=== PATIENT | male | born 1965 | race Caucasian/White ===

== ENCOUNTER 2024-11-03 16:40 | Emergency (ER) | payer MEDICARE ==
[2024-11-03 17:06] VITALS: TEMP 98.1
--- NOTE | 2024-11-03 17:50 | ED ---
General Adult HPI - General Chief complaint: Chest Pain Stated complaint: Abd pain Time Seen by Provider: 11/03/24 17:10 Source: patient Mode of arrival: ambulatory Limitations: no limitations - History of Present Illness Initial comments: Dictation was produced using [employer] dictation software. please excuse any grammatical, word or spelling errors. Chief Complaint: 59-year-old male with epigastric pain History of Present Illness: Patient is a 59-year-old male liver disease and hypertension presents to the ER for couple hours of epigastric pain. Patient states that the pain feels like a pressure in his epigastrium. Does report some nausea. No diaphoresis. Started after he woke up from a nap after going out getting something to eat with his significant other. Denies any fever. Denies any cardiac history. Pain is nonradiating. Patient has history of rib fracture to his left lower anterior ribs. The ROS documented in this emergency department record has been reviewed and confirmed by me. Those systems with pertinent positive or negative responses have been documented in the HPI. All other systems are other negative and/or noncontributory. - Related Data Previous Rx's Medication Instructions Recorded HYDROcodone/APAP 5-325MG [[place] 1 tab PO Q6HR PRN 3 Days #12 tab 11/03/24 5-325] Allergies Allergy/AdvReac Type Severity Reaction Status Date / Time No Known Allergies Allergy Verified 11/03/24 17:05 Review of Systems ROS Statement: Those systems with pertinent positive or pertinent negative responses have been documented in the HPI. ROS Other: All systems not noted in ROS Statement are negative. Past Medical History Past Medical History: Unable to Obtain, Liver Disease Past Surgical History: Unable to Obtain Additional Past Surgical History / Comment(s): pt states theres too many to list and wont provide history Past Psychological History: No Psychological Hx Reported Past Alcohol Use History: Abuse Past Drug Use History: None Reported General Exam - General Exam Comments Initial Comments: PHYSICAL EXAM: General Impression: Alert and oriented x3, not in acute distress HEENT: Normocephalic atraumatic, extra-ocular movements intact, pupils equal and reactive to light bilaterally, mucous membranes moist. Cardiovascular: Heart regular rate and rhythm Chest: Able to complete full sentences, no retractions, no tachypnea palpatory tenderness to the left lower anterior ribs Abdomen: abdomen soft, non-tender, non-distended, no organomegaly Musculoskeletal: Pulses present and equal in all extremities, no peripheral edema Motor: no focal deficits noted Neurological: CN II-XII grossly intact, no focal motor or sensory deficits noted Skin: Intact with no visualized rashes Psych: Normal affect and mood Limitations: no limitations Course Vital Signs 11/03/24 17:01 Temperature 98.1 F Pulse Rate 70 Respiratory 22 Rate Blood Pressure 135/84 O2 Sat by Pulse 97 Oximetry EKG Findings - EKG Comments: EKG Findings:: My EKG interpretation: Ventricular rate 66, sinus rhythm, parable 153, cures 93, QTc 437. No [place] prolongation, no QTC prolongation, no ST or T-wave changes noted. Overall, this EKG is unremarkable Medical Decision Making - Medical Decision Making Was pt. sent in by a medical professional or institution (, PA, BRINE PURIFIER, urgent care, hospital, or retirement...) When possible be specific @ -No Did you speak to anyone other than the patient for history (EMS, parent, family, police, friend...)? What history was obtained from this source @ -No Did you review nursing and triage notes (agree or disagree)? Why? @ -I reviewed and agree with nursing and triage notes Were old charts reviewed (outside hosp., previous admission, EMS record, old EKG, old radiological studies, urgent care reports/EKG's, retirement records)? Report findings @ -No old charts were reviewed Differential Diagnosis (chest pain, altered mental status, abdominal pain women, abdominal pain men, vaginal bleeding, musculoskeletal, weakness, fever, dyspnea, syncope, headache, dizziness, GI bleed, back pain, seizure, CVA, palpatations, mental health)? @ -Differential Chest Pain: Stable Angina, Unstable Angina, STEMI, NSTEMI Aortic Dissection, Pneumothorax, Musculoskeletal, Esophageal Spasm GERD, Cholecystitis, Pancreatitis, Zoster, this is not meant to be an all-inclusive list. EKG interpreted by me (3pts min.). @ -See above X-rays interpreted by me (1pt min.). @ -X-ray shows multiple old rib fractures CT interpreted by me (1pt min.). @ -CT abdomen shows gallstones slight inflammation around the bladder U/S interpreted by me (1pt. min.). @ -None done What testing was considered but not performed or refused? (CT, X-rays, U/S, labs)? Why? @ -None What meds were considered but not given or refused? Why? @ -None Was smoking cessation discussed for >3mins.? @ -No Were there social determinants of health that impacted care today? How? (Homelessness, low income, unemployed, alcoholism, drug addiction, transportation, low edu. Level, literacy, decrease access to med. care, group home, rehab)? @ -No Was there de-escalation of care discussed even if they declined (Discuss DNR or withdrawal of care, Hospice)? DNR status @ -No What co-morbidities impacted this encounter? (DM, HTN, Smoking, COPD, CAD, Cancer, CVA, ARF, Chemo, Hep., AIDS, mental health diagnosis, sleep apnea, morbi d obesity)? @ -Recent rib fractures Was patient admitted / discharged? Hospital course, mention meds given and route, prescriptions, significant lab abnormalities, going to OR and other pertinent info. @ -59-year-old male presents emergency department with epigastric abdominal pain along with left-sided rib pain. He has history of recent rib fractures. He also has history of liver disease. Patient has reproducible pain to his left anterior ribs. Vital signs upon arrival are within acceptable limits. Laboratory evaluation obtained. Labs within acceptable limits including Trope. He has reproducible left anterior chest pain. Urinalysis is unremarkable. Did you discuss the management of the patient with other professionals (professionals i.e. , PA, BRINE PURIFIER, lab, RT, psych nurse, social work manager, floriculture professor, teacher, electronic intelligence officer, director case management)? Give summary @ -Patient given analgesics. Urinalysis tested due to abnormal findings on CT Was critical care preformed (if so, how long)? @ -No Undiagnosed new problem with uncertain prognosis? @ -No Drug Therapy requiring intensive monitoring for toxicity (Heparin, Nitro, Insulin, Cardizem)? @ -No Were any procedures done? @ -No Diagnosis/symptom? Acute, or Chronic, or Acute on Chronic? Uncomplicated (without systemic symptoms) or Complicated (systemic symptoms)? @ -Rib pain Side effects of treatment? @ -No Exacerbation, Progression, or Severe Exacerbation? @ -No Poses a threat to life or bodily function? How? (Chest pain, [place], [place], pneumonia, PE, COPD, DKA, ARF, appy, cholecystitis, CVA, Diverticulitis, Homicidal, Suicid al, threat to staff... and all critical care pts) @ -yes - Lab Data Result diagrams: 11/03/24 17:57 11/03/24 17:57 Lab Results 11/03/24 11/03/24 11/03/24 Range/Units 17:57 17:57 17:57 WBC 3.79 L (4.50-10.00) 10*3/uL RBC 3.83 L (4.40-5.60) 10*6/uL Hgb 14.0 (13.0-17.0) g/dL Hct 38.0 L (39.6-50.0) % MCV 99.2 H (80.0-97.0) fL MCH 36.6 H (27.0-32.0) pg MCHC 36.8 (32.0-37.0) g/dL Plt Count 110 L (140-440) 10*3/uL MPV 10.7 (9.5-12.2) fL Immature Gran % (Auto) 0.3 % Neutrophils % 54.6 % Lymphocytes % 29.8 % Monocytes % 12.4 % Eosinophils % 2.4 % Basophils % 0.5 % Immature Gran # 0.01 (0.00-0.04) 10*3/uL Neutrophils # 2.07 (1.80-7.70) 10*3/uL Lymphocytes # 1.13 (0.90-5.00) 10*3/uL Monocytes # 0.47 (0.20-1.00) 10*3/uL Eosinophils # 0.09 (0.04-0.35) 10*3/uL Basophils # 0.02 (0.00-0.10) 10*3/uL PT 13.8 H (10.0-12.5) sec INR 1.3 H (<1.2) APTT 26.1 (22.0-30.0) sec Sodium 137 (137-145) mmol/L Potassium 4.1 (3.5-5.1) mmol/L Chloride 100 (98-107) mmol/L Carbon Dioxide 25 (22-30) mmol/L Anion Gap 12 mmol/L BUN 6 L (9-20) mg/dL Creatinine 0.77 (0.66-1.25) mg/dL Est GFR (CKD-EPI)AfAm >90 (>60 ml/min/1.73 sqM) Est GFR (CKD-EPI)NonAf >90 (>60 ml/min/1.73 sqM) Glucose 120 H (74-99) mg/dL Calcium 9.2 (8.4-10.2) mg/dL Magnesium 1.6 (1.6-2.3) mg/dL Total Bilirubin 3.5 H (0.2-1.3) mg/dL AST 103 H (17-59) U/L ALT 55 H (4-49) U/L Alkaline Phosphatase 114 (38-126) U/L Troponin I (0.000-0.034) ng/mL Total Protein 6.6 (6.3-8.2) g/dL Albumin 3.7 (3.5-5.0) g/dL Lipase 85 (23-300) U/L Urine Color Urine Appearance (Clear) Urine pH (5.0-8.0) Ur Specific [place] (1.001-1.035) Urine Protein (Negative) Urine Glucose (UA) (Negative) Urine Ketones (Negative) Urine Blood (Negative) Urine Nitrite (Negative) Urine Bilirubin (Negative) Urine Urobilinogen (<2.0) mg/dL Ur Leukocyte Esterase (Negative) 11/03/24 11/03/24 Range/Units 17:57 20:56 WBC (4.50-10.00) 10*3/uL RBC (4.40-5.60) 10*6/uL Hgb (13.0-17.0) g/dL Hct (39.6-50.0) % MCV (80.0-97.0) fL MCH (27.0-32.0) pg MCHC (32.0-37.0) g/dL Plt Count (140-440) 10*3/uL MPV (9.5-12.2) fL Immature Gran % (Auto) % Neutrophils % % Lymphocytes % % Monocytes % % Eosinophils % % Basophils % % Immature Gran # (0.00-0.04) 10*3/uL Neutrophils # (1.80-7.70) 10*3/uL Lymphocytes # (0.90-5.00) 10*3/uL Monocytes # (0.20-1.00) 10*3/uL Eosinophils # (0.04-0.35) 10*3/uL Basophils # (0.00-0.10) 10*3/uL PT (10.0-12.5) sec INR (<1.2) APTT (22.0-30.0) sec Sodium (137-145) mmol/L Potassium (3.5-5.1) mmol/L Chloride (98-107) mmol/L Carbon Dioxide (22-30) mmol/L Anion Gap mmol/L BUN (9-20) mg/dL Creatinine (0.66-1.25) mg/dL Est GFR (CKD-EPI)AfAm (>60 ml/min/1.73 sqM) Est GFR (CKD-EPI)NonAf (>60 ml/min/1.73 sqM) Glucose (74-99) mg/dL Calcium (8.4-10.2) mg/dL Magnesium (1.6-2.3) mg/dL Total Bilirubin (0.2-1.3) mg/dL AST (17-59) U/L ALT (4-49) U/L Alkaline Phosphatase (38-126) U/L Troponin I <0.012 (0.000-0.034) ng/mL Total Protein (6.3-8.2) g/dL Albumin (3.5-5.0) g/dL Lipase (23-300) U/L Urine Color Yellow Urine Appearance Clear (Clear) Urine pH 6.5 (5.0-8.0) Ur Specific [place] >1.050 H (1.001-1.035) Urine Protein Negative (Negative) Urine Glucose (UA) Negative (Negative) Urine Ketones Negative (Negative) Urine Blood Negative (Negative) Urine Nitrite Negative (Negative) Urine Bilirubin Negative (Negative) Urine Urobilinogen >12.0 (<2.0) mg/dL Ur Leukocyte Esterase Negative (Negative) Disposition Clinical Impression: Rib pain Disposition: HOME SELF-CARE Condition: Fair Instructions (If sedation given, give patient instructions): Rib Fracture (ED) Prescriptions: HYDROcodone/APAP 5-325MG [[place] 5-325] 1 tab PO Q6HR PRN 3 Days #12 tab PRN Reason: Severe Pain Is patient prescribed a controlled substance at d/c from ED?: Yes If prescribed controlled substance>3 days was MAPS reviewed?: Prescribed <3 Days Referrals: None,Stated [Primary Care Provider] - 1-2 days Time of Disposition: 21:18
[2024-11-03 18:03] LABS: Basophils # (A) 0.02 10*3/uL (0.00-0.10); Basophils % (A) 0.5 %; Eosinophils # (A) 0.09 10*3/uL (0.04-0.35); Eosinophils % (A) 2.4 %; Lymphocytes # (A) 1.13 10*3/uL (0.90-5.00); Lymphocytes % (A) 29.8 %; MCH 36.6 pg (27.0-32.0); MCHC 36.8 g/dL (32.0-37.0); MCV 99.2 fL (80.0-97.0); Mean Platelet Volume 10.7 fL (9.5-12.2); Monocytes # (A) 0.47 10*3/uL (0.20-1.00); Monocytes % (A) 12.4 %; Neutrophils # (A) 2.07 10*3/uL (1.80-7.70); Neutrophils % (A) 54.6 %; Platelet Count 110 10*3/uL (140-440); RBC 3.83 10*6/uL (4.40-5.60); RDW 13.2 % (11.5-14.5); WBC 3.79 10*3/uL (4.50-10.00)
[2024-11-03 18:13] LABS: INR 1.3 (<1.2); Partial Thromboplastin Time 26.1 sec (22.0-30.0); Prothrombin Time 13.8 sec (10.0-12.5)
[2024-11-03] MEDS: MORPHINE SULFATE 4 MG/ML SYRINGE IVP PRN (18:14)
[2024-11-03 18:19] LABS: ALT 55 U/L (4-49); African American GFR (CKD) >90 (>60 ml/min/1.73 sqM); Albumin 3.7 g/dL (3.5-5.0); Anion Gap 12 mmol/L; Blood Urea Nitrogen 6 mg/dL (9-20); Calcium 9.2 mg/dL (8.4-10.2); Carbon Dioxide 25 mmol/L (22-30); Chloride 100 mmol/L (98-107); Glucose 120 mg/dL (74-99); Lipase 85 U/L (23-300); Magnesium 1.6 mg/dL (1.6-2.3); Non-African American GFR(CKD) >90 (>60 ml/min/1.73 sqM); Potassium 4.1 mmol/L (3.5-5.1); Sodium 137 mmol/L (137-145); Total Bilirubin 3.5 mg/dL (0.2-1.3); Total Protein 6.6 g/dL (6.3-8.2)
[2024-11-03 18:20] LABS: AST 103 U/L (17-59); Alkaline Phosphatase 114 U/L (38-126)
--- NOTE | 2024-11-03 18:46 | XR ---
EXAMINATION TYPE: XR chest 2V DATE OF EXAM: 11/03/2024 6:12 PM COMPARISON: None CLINICAL INDICATION: Male, 59 years old with history of Chest Pain; [facility] TECHNIQUE: XR chest 2V Frontal and lateral views of the chest. FINDINGS: Lungs/Pleura: There is no evidence of pleural effusion, focal consolidation, or pneumothorax. Pulmonary vascularity: Unremarkable. Heart/mediastinum: Cardiomediastinal silhouette is unremarkable. Musculoskeletal: No acute osseous pathology. Replating lung multiple left ribs. Displaced fractures o f upper left ribs noted IMPRESSION: No acute cardiopulmonary disease/process. Multiple old rib fractures on the left some which are incompletely reduced. [facility], , 11/03/2024 6:43 PM
--- NOTE | 2024-11-03 20:29 | CT ---
EXAMINATION TYPE: CT abdomen pelvis w con DATE OF EXAM: 11/03/2024 7:34 PM COMPARISON: None CLINICAL INDICATION: Male, 59 years old with history of abdominal pain; MID ABDOMINAL PAIN SINCE THIS MORNING, NAUSEA TECHNIQUE: Axial CT abdomen pelvis w con;Sagittal and coronal reformats were created on a separate w orkstation. Contrast used:100 ml mL of Isovue 300 with IV Contrast, (none if empty) Oral contrast used: without Oral Contrast (none if empty) CT DLP: 1280.2 mGycm, Automated exposure control for dose reduction was used. FINDINGS: LOWER CHEST: Left lateral rib fixation hardware. ABDOMEN LIVER: Diffusely hypoattenuating parenchyma with areas of even more decreased attenuation. GALLBLADDER AND BILE DUCTS: Layering increased densities within the lumen consistent with gallstones are present. PANCREAS: Unremarkable. SPLEEN: Prominent in size measuring up to 13 cm. ADRENAL GLANDS: Unremarkable. KIDNEYS AND URETERS: No evidence of hydronephrosis or obstructing renal calculus. The ureters are unr emarkable. PELVIS BLADDER: Mild wall thickening of the urinary bladder with fat stranding around the margin. REPRODUCTIVE: Coarse calcifications of the prostate gland are identified. ABDOMEN & PELVIS STOMACH AND BOWEL: No evidence of bowel obstruction. PERITONEUM/RETROPERITONEUM: No evidence of pneumoperitoneum or free fluid. VASCULATURE: No evidence of aortic aneurysm. Multiple large tortuous varicosities along the right huong [place] vein extending up into the portal confluence.. MUSCULOSKELETAL: No acute osseous abnormalities. Mild disc degeneration changes are present throughou t the thoracolumbar spine. the calcifications on the left hip possibly secondary to prior injury. Mil d degeneration changes of the left hip. LYMPH NODES: No gross evidence for lymphadenopathy. SOFT TISSUE/ABDOMINAL WALL: Bilateral inguinal IMPRESSION: 1. Severe hepatic steatosis with evidence of portal hypertension with multiple varicosities in the a bdomen. Correlate for early cirrhosis. Correlate with serum markers to exclude superimposed hepatitis . 2. Mild urinary bladder wall thickening with inflammation changes compared urinalysis for infection. 3. Hepatic steatosis. 4. Cholelithiasis with a distended gallbladder [facility], , 11/03/2024 8:27 PM
[2024-11-03 21:19] LABS: Appearance,Urine Clear (Clear); Bilirubin,Urine Negative (Negative); Blood,Urine Negative (Negative); Color,Urine Yellow; Glucose,Urine (UA) Negative (Negative); Ketones,Urine Negative (Negative); Leukocyte Esterase,Urine Negative (Negative); Nitrite,Urine Negative (Negative); PH, Urine 6.5 (5.0-8.0); Protein,Urine Negative (Negative); Urobilinogen,Urine >12.0 mg/dL (<2.0)
[2024-11-03 21:23] LABS: Specific Gravity,Urine >1.050 (1.001-1.035)
[2024-11-03] MEDS: LIDOCAINE 4% PATCH TOPICAL ONE (21:32)
[2024-11-03 21:41] VITALS: BP 110/63; PULSE 67; RESP 18
== END 2024-11-03 21:41 | disposition home or self-care (01) ==
LOC: EC 16:40
DX: R07.81 Pleurodynia (principal)
CPT/HCPCS: 36415; 93005; 80053; 83690; 83735; 84484; 85025; 85610; 85730; 81003; 71046; 74177; 99285; 96374; J2270; Q9967

== ENCOUNTER 2024-11-25 09:45 | Emergency (ER) | payer MEDICARE ==
[2024-11-25 10:05] VITALS: TEMP 97.8
--- NOTE | 2024-11-25 11:08 | XR ---
EXAMINATION TYPE: XR chest 2V DATE OF EXAM: 11/25/2024 CLINICAL INDICATION: Male, 59 years old with history of fall/injury/pain, TECHNIQUE: Frontal and lateral views of the chest are obtained. COMPARISON: Chest x-ray November 03, 2024 FINDINGS: There is new Right basilar opacity. Surgical change to lateral left mid to lower ribs is redemonstrated. Left upper rib deformities redemonstrated. The cardiac silhouette size is. Upper limi ts of normal. Left lung is grossly clear. IMPRESSION: New right lower lung acute infiltrate and/or atelectasis [facility], , 11/25/2024 11:06 AM
--- NOTE | 2024-11-25 11:40 | ED ---
Fall HPI - General Chief Complaint: Fall Stated Complaint: Fall-L Side Pain Time Seen by Provider: 11/25/24 11:39 Source: patient, family, RN notes reviewed Mode of arrival: ambulatory Limitations: no limitations - History of Present Illness Initial Comments: 59-year-old male presented the ER for evaluation of left rib pain. Patient states yesterday after getting home from work he took off his shoes and attempted to walk into the house on tile floor and socks. He states he slipped and fell he believes he landed on his bottom left side. He states since fall he has been having intense pain to his left ribs. Pain with inspiration along with shortness of breath. He reports increase in pain with movement of left upper extremity. Patient has not taken anything for pain at this time. Patient does report a history of fractures to left ribs with internal fixation in place this was completed last year in [place]. He denies any head injury, loss of consciousness or blood thinner use. Patient denies any other injuries or complaints at this time. - Related Data Previous Rx's Medication Instructions Recorded HYDROcodone/APAP 5-325MG [[place] 1 tab PO Q6HR PRN 3 Days #12 tab 11/03/24 5-325] HYDROcodone/APAP 5-325MG [[place] 1 tab PO Q6HR PRN 3 Days #12 tab 11/25/24 5-325] Lidocaine 5% Patch [Lidoderm 5% 1 patch TOPICAL DAILY #30 patch 11/25/24 Patch] Allergies Allergy/AdvReac Type Severity Reaction Status Date / Time No Known Allergies Allergy Verified 11/25/24 10:05 Review of Systems ROS Statement: Those systems with pertinent positive or pertinent negative responses have been documented in the HPI. ROS Other: All systems not noted in ROS Statement are negative. Past Medical History Past Medical History: Unable to Obtain, Liver Disease Past Surgical History: Unable to Obtain Additional Past Surgical History / Comment(s): pt states theres too many to list and wont provide history Past Psychological History: No Psychological Hx Reported Smoking Status: Never smoker Past Alcohol Use History: Occasional Past Drug Use History: None Reported General Exam Limitations: no limitations General appearance: alert, in no apparent distress Respiratory exam: Present: normal lung sounds bilaterally, chest wall tenderness (left anterolateral ribs. No paradoxical chest wall motions. Contusion noted). Absent: respiratory distress, wheezes, rales, rhonchi, stridor Cardiovascular Exam: Present: regular rate, normal rhythm, normal heart sounds. Absent: systolic murmur, diastolic murmur, rubs, gallop, clicks Extremities exam: Present: normal inspection, full ROM, normal capillary refill. Absent: tenderness, pedal edema, joint swelling, calf tenderness Neurological exam: Present: alert, oriented X3, CN II-XII intact Skin exam: Present: warm, dry, intact, normal color. Absent: rash Course Vital Signs 11/25/24 11/25/24 11/25/24 10:00 11:19 14:32 Temperature 97.8 F Pulse Rate 73 76 89 Respiratory 16 20 18 Rate Blood Pressure 187/93 166/85 168/87 O2 Sat by Pulse 95 96 97 Oximetry Medical Decision Making - Medical Decision Making Was pt. sent in by a medical professional or institution (KANDY Davis, HEEL PAINTER, urgent care, hospital, or correction...) When possible be specific @ -No Did you speak to anyone other than the patient for history (EMS, parent, family, police, friend...)? What history was obtained from this source @ -Patient's , at bedside, aiding in HPI past medical history. Did you review nursing and triage notes (agree or disagree)? Why? @ -I reviewed and agree with nursing and triage notes Were old charts reviewed (outside hosp., previous admission, EMS record, old EKG, old radiological studies, urgent care reports/EKG's, correction records)? Report findings @ -No old charts were reviewed Differential Diagnosis (chest pain, altered mental status, abdominal pain women, abdominal pain men, vaginal bleeding, weakness, fever, dyspnea, syncope, headache, dizziness, GI bleed, back pain, seizure, CVA, palpatations, mental health, musculoskeletal)? @ -Fracture, dislocation, contusion, hematoma, intracranial hemorrhage, co ncussion, abrasion, laceration this list does not like to be all-inclusive EKG interpreted by me (3pts min.). @ -None done X-rays interpreted by me (1pt min.). @ -None done chest x-ray interpreted me negative for acute rib fracture. No acute consolidations, pneumothorax or pleural effusion noted. CT interpreted by me (1pt min.). @ -CT chest showing mild streaky opacities likely atelectasis. Prominent hepatic steatosis with some focal fatty sparing. No rib fractures identified. U/S interpreted by me (1pt. min.). @ -None done What testing was considered but not performed or refused? (CT, X-rays, U/S, labs)? Why? @ -None What meds were considered but not given or refused? Why? @ -None Did you discuss the management of the patient with other professionals (professionals i.e. Dr., PA, HEEL PAINTER, lab, RT, psych nurse, nephrology social worker, chair trimmer, teacher, resident medical officer, pillowcase folder)? Give summary @ -No Was smoking cessation discussed for >3mins.? @ -No Was critical care preformed (if so, how long)? @ -No Were there social determinants of health that impacted care today? How? (Homelessness, low income, unemployed, alcoholism, drug addiction, transportation, low edu. Level, literacy, decrease access to med. care, halfway, rehab)? @ -[place]. Was there de-escalation of care discussed even if they declined (Discuss DNR or withdrawal of care, Hospice)? DNR status @ -No What co-morbidities impacted this encounter? (DM, HTN, Smoking, COPD, CAD, Cancer, CVA, ARF, Chemo, Hep., AIDS, mental health diagnosis, sleep apnea, morbid obesity)? @ -None Was patient admitted / discharged? Hospital course, mention meds given and route, prescriptions, significant lab abnormalities, going to OR and other pertinent info. @ -Discharge. 59-year-old male presented the ER for evaluation of left rib pain.Upon arrival patient hypertensive 187/93, patient reports not taking antihypertensive medication this morning, I instructed him to take these upon discharge. Vitals otherwise within acceptable limits. Chest x-ray initially ordered via [facility] orders. There is no pneumothorax, pleural effusion or focal consolidation noted. No rib fractures identified. Upon rooming, history and physical exam completed. There is tenderness noted to left anterior lateral ribs with minimal contusion noted. No paradoxical chest wall motions. Lung sounds heard throughout all lung quintana. Given patient's history of traumatic left rib fractures with internal fixations in place with new injury, CT chest was obtained and negative for acute rib fractures. CT chest was reviewed by myself, radiology and my attending Dr. Benjamin. Patient provided with symptomatic control with IM Toradol, [place] and lidocaine patch. Upon reevaluation, patient resting comfortably on stretcher no signs of acute distress. Results discussed with patient, all questions answered. Patient is agreeable with discharge at this time. [place] and lidocaine patches prescribed. I also advised [id number] ibuprofen. Incentive spirometer provided at discharge. Advise close follow-up with PCP. Strict return parameters discussed. Patient verbally expressed understanding agreement with care plan. Case discussed with ED attending, Dr. Benjamin. Undiagnosed new problem with uncertain prognosis? @ -No Drug Therapy requiring intensive monitoring for toxicity (Heparin, Nitro, Insulin, Cardizem)? @ -No Were any procedures done? @ -No Diagnosis/symptom? @ -Rib pain/fall Acute, or Chronic, or Acute on Chronic? @ -Acute Uncomplicated (without systemic symptoms) or Complicated (systemic symptoms)? @ -Uncomplicated Side effects of treatment? @ -No Exacerbation, Progression, or Severe Exacerbation? @ -No Poses a threat to life or bodily function? How? (Chest pain, [place], [place], pneumonia, PE, COPD, DKA, ARF, appy, cholecystitis, CVA, Diverticulitis, Homicidal, Suicidal, threat to staff... and all critical care pts) @ -Unlikely - Radiology Data Radiology results: report reviewed, image reviewed Disposition Clinical Impression: Fall, Rib pain Disposition: HOME SELF-CARE Condition: Stable Instructions (If sedation given, give patient instructions): How to Use an Incentive Spirometer (ED), Fall Prevention (ED) Additional Instructions: Follow-up closely with PCP. Return to the ER for any new or worsening concerns. Use incentive spirometer hourly. Prescriptions: Lidocaine 5% Patch [Lidoderm 5% Patch] 1 patch TOPICAL DAILY #30 patch HYDROcodone/APAP 5-325MG [[place] 5-325] 1 tab PO Q6HR PRN 3 Days #12 tab PRN Reason: Pain Is patient prescribed a controlled substance at d/c from ED?: Yes When asked, does pt state using other controlled substances?: No If prescribed controlled substance>3 days was MAPS reviewed?: Prescribed <3 Days If opioid is for acute pain is fill amount 7 days or less?: Yes If Rx opioid, was Start Talking consent form obtained?: Yes Referrals: None,Stated [Primary Care Provider] - 1-2 days [facility] [NON-STAFF] - 1-2 days [facility] [NON-STAFF] - 1-2 days Time of Disposition: 14:27
[2024-11-25] MEDS: HYDROcodone/APAP 5-325MG 1 EACH TAB PO STA (11:42)
[2024-11-25] MEDS: KETOROLAC 15 MG/ML 1 ML VIAL IM STA (11:43)
[2024-11-25] MEDS: LIDOCAINE 4% PATCH TOPICAL ONE (11:43)
--- NOTE | 2024-11-25 14:05 | CT ---
EXAMINATION TYPE: CT chest wo con DATE OF EXAM: 11/25/2024 12:51 PM COMPARISON: None. CLINICAL INDICATION: Male, 59 years old with history of left rib pain s/p fall hx fixation, FELL YEST ERDAY/ LT RIB PAIN/TRAUMA 1 Y AGO TECHNIQUE: Axial images were obtained at 5 mm thick sections. Reconstructed images are reviewed on [employer] computer in the coronal plane. Contrast used: mL of , (none if empty) Oral contrast used: (none if empty) CT DLP: 439.2 mGycm, Automated exposure control for dose reduction was used. FINDINGS: Portion of the thyroid visualized is normal. There is some mild streak opacities in the left lower and right middle lobes. Correlate for atelectas is. Early infiltrate is less likely. No enlarged mediastinal or hilar adenopathy is evident. The ascending aorta diameter at the level o f the main pulmonary artery is 3.7 cm. The main pulmonary artery diameter at the bifurcation is 2.9 Cm. No significant coronary artery calcifications. Limited CT sections are obtained through the upper abdomen. Liver is heterogenous with ill-defined ch anges in density. This may be related to moderate fatty infiltration of liver with some focal sparing . Please see prior CT abdomen and pelvis 11/03/2024. IMPRESSION: 1. Mild streaky opacities most likely on the basis of atelectasis. 2. Prominent hepatic steatosis, likely with some focal fatty sparing. Follow-up recommended. [facility], , 11/25/2024 2:03 PM
[2024-11-25 14:33] VITALS: BP 168/87; PULSE 89; RESP 18
== END 2024-11-25 14:38 | disposition home or self-care (01) ==
LOC: EC 09:45
DX: R07.81 Pleurodynia (principal); W01.0XXA Fall on same level from slipping, tripping and stumbling without subsequent striking against object, initial encounter
CPT/HCPCS: 71046; 71250; 99283; 96372; J1885